=== PATIENT | male | born 1980 | race Caucasian/White ===

== ENCOUNTER 2018-07-06 14:28 | Emergency (ER) | payer SELFPAY | END 2018-07-06 15:20 | disposition home or self-care (01) | LOC: ERS 14:28 | DX: K04.7 Periapical abscess without sinus (principal); K02.9 Dental caries, unspecified | CPT/HCPCS: 99282 ==

== ENCOUNTER 2019-02-18 15:39 | Emergency (ER) | payer SELFPAY ==
[2019-02-18] MEDS ORDERED: Adacel (T-DAP) 0.5 ML SYRINGE ONE (16:46)
[2019-02-18] MEDS ORDERED: Lidocaine 1% w/Epinephrine 1:100K 20 ML VIAL ONE (16:49)
--- NOTE | 2019-02-18 17:02 | CT ---
CT BRAIN WITHOUT CONTRAST: INDICATIONS: History of hitting chin on trailer with loss of consciousness for 10 minutes. The patient has a lace ration along the chin. COMPARISON: 11/20/2014 FINDINGS: No acute infarct, hemorrhage, or hydrocephalus is present. The paranasal sinuses and mastoid air kami ls are clear. The skull is intact. IMPRESSION: No acute intracranial abnormality. POS: CET
[2019-02-18] MEDS ORDERED: Bacitracin 1 PK ONE (17:37)
== END 2019-02-18 17:38 | disposition home or self-care (01) ==
LOC: ERS 15:39
DX: S06.9X1A Unspecified intracranial injury with loss of consciousness of 30 minutes or less, initial encounter (principal); S01.81XA Laceration without foreign body of other part of head, initial encounter; F17.210 Nicotine dependence, cigarettes, uncomplicated; W01.198A Fall on same level from slipping, tripping and stumbling with subsequent striking against other object, initial encounter
CPT/HCPCS: 12051; 70450; 90471; 90715; J2001

== ENCOUNTER 2019-04-18 18:40 | Emergency (ER) | payer SELFPAY ==
[2019-04-18] MEDS ORDERED: Naproxen 500 MG TAB ONE (19:14)
== END 2019-04-18 19:18 | disposition home or self-care (01) ==
LOC: ERS 18:40
DX: K02.9 Dental caries, unspecified (principal); F41.9 Anxiety disorder, unspecified; F32.9 Major depressive disorder, single episode, unspecified; F17.210 Nicotine dependence, cigarettes, uncomplicated
CPT/HCPCS: 99282

== ENCOUNTER 2019-05-03 05:35 | Emergency (ER) | payer SELFPAY ==
[2019-05-03] MEDS ORDERED: Acetaminophen 500 MG TAB ONE (07:14)
== END 2019-05-03 07:17 | disposition home or self-care (01) ==
LOC: ERS 05:35
DX: K08.89 Other specified disorders of teeth and supporting structures (principal); R51 Headache; F41.9 Anxiety disorder, unspecified; F32.9 Major depressive disorder, single episode, unspecified; F17.210 Nicotine dependence, cigarettes, uncomplicated
CPT/HCPCS: 99282

== ENCOUNTER 2020-03-10 17:37 | Emergency (ER) | payer SELFPAY ==
[2020-03-10 19:05] LABS: #Basophils 0.1 thou/uL (0.0-0.2); #Eosinphils 0.2 thou/uL (0.0-0.7); #Lymphocytes 1.5 thou/uL (1.20-3.40); #Monocytes 0.5 thou/uL (0.11-0.59); #Neutrophils 5.5 thou/uL (1.40-6.50); %Basophils 0.7 % (0.0-1.0); %Eosinophils 2.4 % (0.0-10.0); %Lymphocytes 19.8 % (21.0-51.0); %Monocytes 6.7 % (0.0-10.0); %Neutrophils 70.4 % (42.0-75.0); Hemoglobin 15.2 g/dL (14.0-18.0); Mean Corpuscular HGB CONC 34.2 g/dL (32.0-36.0); Mean Corpuscular Hemoglobin 29.8 pg (27.0-31.0); Mean Corpuscular Volume 87.1 fL (78.0-98.0); Mean Platelet Volume 7.3 fL (7.4-10.4); Platelet Count 260 thou/uL (130-400); RBC Distribution Width 11.7 % (11.5-14.5); White Blood Cell (WBC) Count 7.8 thou/uL (4.8-10.8)
[2020-03-10] MEDS ORDERED: Ketorolac Tromethamine 30 MG/ML VIAL ONE (19:31)
[2020-03-10] MEDS ORDERED: Lidocaine 1% (PF) 30 ML VIAL ONE (19:49)
--- NOTE | 2020-03-10 20:11 | RAD ---
EXAM: LEFT HAND THREE VIEWS: 03/10/20 HISTORY: Left ring finger pain and swelling for several days. There is fairly marked focal soft tissue swelling of the fourth finger at approximately the proximal interphalangeal joint region. No acute fracture or dislocation or other osseous process. There is a f aint double density noted overlying the soft tissue region on the dorsal radial side, conceivably thi s could represent a very minimally opaque foreign body or may just represent some focal soft tissue c hange. No evidence for metal foreign body. IMPRESSION: Marked soft tissue swelling. No metal foreign body. No fracture or dislocation. Focal double density overlying the soft tissues on the dorsal radial side of the finger of uncertain etiology. POS: RRE
== END 2020-03-10 20:52 | disposition left against medical advice (07) ==
LOC: ERS 17:37
DX: S60.465A Insect bite (nonvenomous) of left ring finger, initial encounter (principal); L08.9 Local infection of the skin and subcutaneous tissue, unspecified; F17.210 Nicotine dependence, cigarettes, uncomplicated; W57.XXXA Bitten or stung by nonvenomous insect and other nonvenomous arthropods, initial encounter
CPT/HCPCS: 36415; 85025; 96372; J1885; J2001

== ENCOUNTER 2020-03-11 15:25 | Inpatient (IN) | payer OTHER, SELFPAY ==
--- NOTE | 2020-03-11 16:01 | RAD ---
LEFT HAND: 03/11/20 Three views. HISTORY: Swelling. FINDINGS/IMPRESSION: Comparison made to yesterday's left hand films. Soft tissue swelling of the ring finger at the PIP arabella int is again noted and appears unchanged in appearance. No definite soft tissue foreign body is seen. No osseous abnormality. No other finding or interval change. POS: AH
[2020-03-11] MEDS ORDERED: Lidocaine 1% (PF) 30 ML VIAL ONE (17:16)
[2020-03-11 17:56] LABS: #Eosinphils 0.2 thou/uL (0.0-0.7); #Lymphocytes 1.7 thou/uL (1.20-3.40); #Monocytes 0.5 thou/uL (0.11-0.59); #Neutrophils 5.1 thou/uL (1.40-6.50); %Basophils 0.6 % (0.0-1.0); %Eosinophils 2.7 % (0.0-10.0); %Lymphocytes 22.3 % (21.0-51.0); %Monocytes 7.1 % (0.0-10.0); %Neutrophils 67.3 % (42.0-75.0); Hemoglobin 15.5 g/dL (14.0-18.0); Mean Corpuscular HGB CONC 34.9 g/dL (32.0-36.0); Mean Corpuscular Hemoglobin 30.6 pg (27.0-31.0); Mean Corpuscular Volume 87.6 fL (78.0-98.0); Mean Platelet Volume 7.4 fL (7.4-10.4); Platelet Count 272 thou/uL (130-400); RBC Distribution Width 11.7 % (11.5-14.5); Red Blood Cell (RBC) Count 5.08 mill/uL (4.70-6.10); White Blood Cell (WBC) Count 7.7 thou/uL (4.8-10.8)
--- NOTE | 2020-03-11 18:01 | PDOC.FPRHP ---
- History of Present Illness Chief Complaint: Left fourth finger abscess History of Present Illness: 39-year-old male who presents for a left fourth finger abscess. Patient was seen in the ED yesterday d/t mild to moderate the swollen finger and at that time had an abscess who we offered to drain in the emergency department. Patient left AMA but did take a dose of his Doxy that he was given last night and returns here for worsening pain. Patient states he was working in the yard 4 -5 days ago and he "nicked" his finger. He is unsure if it was an insect bite or sting. States he started having swelling 1-2 days later. Notes he has taken 1 -2 advil per day for pain and used cold water for relief. Heat makes it worse. He denies fevers chills nausea vomiting. ED Course: unasyn/vanc started in ED, I&D performed in ED with cultures - Allergies/Adverse Reactions Allergies Allergy/AdvReac Type Severity Reaction Status Date / Time No Known Drug Allergies Allergy Verified 03/11/20 23:29 - History PMHx: none PSHx: none FHx: DM Social: smokes 1/2 pack of cigarettes x25 years, no alcohol, no drugs - Review of Systems General: denies: fever/chills, weight/appetite/sleep changes Eyes: denies: vision changes ENT: denies: nasal congestion Respiratory: denies: cough, congestion Cardiovascular: denies: chest pain Gastrointestinal: denies: nausea, vomiting, diarrhea Genitourinary: denies: incontinence, dysuria Skin: reports: other Musculoskeletal: reports: pain (Left fourth finger at joint line), tenderness, swelling Neurological: denies: numbness, syncope - Vital signs BP: 112/70, Pulse: 85, Resp: 14, Temp: 98.0 (Oral), Pain: 6, O2 sat: 100 on ( Room Air), - Physical Exam Constitutional: NAD, awake, alert and oriented HEENT: normocephalic and atraumatic, PERRLA, EOMI Neck: FROM Heart: pulses present, no edema Lungs: no respiratory distress, good air movement Abdomen: no masses/distention Musculoskeletal: other (Upper extremity exam included findings of inspection abnormal, Large abscess left fourth digit on the medial aspect of the PIP appears to be overlying the superficial skin with significant cellulitis of the entire finger. ROM intact, decreased sensation due to lidocaine from I&D) Neurological: no focal deficit Psychiatric: other (flat affect) FMR H&P: Results - Labs Result Diagrams: 03/11/20 17:41 03/11/20 17:41 Lab results: WBC 7.7 thou/uL (4.8-10.8) 03/11/20 17:41 Hgb 15.5 g/dL (14.0-18.0) 03/11/20 17:41 Hct 44.5 % (42.0-52.0) 03/11/20 17:41 MCV 87.6 fL (78.0-98.0) 03/11/20 17:41 Plt Count 272 thou/uL (130-400) 03/11/20 17:41 Neutrophils % 67.3 % (42.0-75.0) 03/11/20 17:41 FMR H&P: A/P - Plan Abscess of L Fourth Finger WBC nml, vitals stable XR shows soft tissue swelling at PCP, no FB I&D performed 03/11 Patient started on unasyn/vanc Dr. Horton (ortho) consulted by, appreciate recs. Will see in am, possibly go to surgery if no improvement - q4hr vitals - pain control with tylenol, ibuprofen and morphine prn Dispo: admit surg os, LOS likely <24 hours Code: DNR/DNI PCP: none PPX: none I have discussed this case with Dr. Price. FMR H&P: Upper Level - Plan Date/Time: 03/11/20 422 I, Solange Irene MD, have evaluated this patient and agree with findings/plan as outlined by cad intern resident. Pertinent changes/additions are listed here. This is a 39yo M presenting to the ER today for abscess of L 4th digit. He came to the ER yesterday, declined I&D, left AMA. He was sent home with doxy which he took once. He came back today because he had worsening pain and swelling in that L 4th digit. He denies any fever, chills. He is able to move the digit. Denies any numbness or tingling in digit. He reports he was working in his yard 4-5 days ago and thinks he maybe was bit by something or knicked his finger on something. 1-2 days later the finger was swelling and red. In the ER I&D performed on L 4th digit. No PMH. See cad intern note for full details/history. PE: General: NAD, well developed Cardio: RRR, no murmurs, rubs or gallops Resp: CTAB Abd: soft, non distended MSK: L 4th finger - bulla present, surrounding erythema, limited ROM due to swelling; otherwise no abnormalities Psych: flat affect, axox3 Plan: Abscess L 4th digit with cellulitis s/p I&D in the ER. Xray showing soft tissue swelling of L 4th digit. - Ortho consulted, Dr. Evans Horton. Appreciate recs. Will likely take to OR in the AM. - Continue Vanc and Unasyn - Pain control with tylenol, ibuprofen, morphine for breakthrough. Dispo: admit to surg, obs Diet: Reg, NPO @ midnight Case discussed with Dr. Price Addendum - Attending - Attending Attestation Date/Time: 03/12/20 2551 I personally evaluated the patient and discussed the management with the team on 03/11. I agree with the History, Examination, Assessment and Plan documented above with any addition or exceptions noted below.
[2020-03-11 18:19] LABS: ALT (SGPT) 14 U/L (8-55); AST (SGOT) 14 U/L (5-34); Albumin 4.6 g/dL (3.5-5.0); Alkaline Phosphatase 66 U/L (40-110); Anion Gap 12 mmol/L (10-20); BUN (Urea Nitrogen) 17 mg/dL (8.9-20.6); Bilirubin, Total 0.5 mg/dL (0.2-1.2); Calc. Creatinine Clearance 0 mL/min (70-130); Calcium 9.7 mg/dL (7.8-10.44); Carbon Dioxide 25 mmol/L (22-29); Chloride 106 mmol/L (98-107); Estimated GFR-MDRD 82; Globulin 2.9 g/dL (2.4-3.5); Glucose 70 mg/dL (70-105); Potassium 4.1 mmol/L (3.5-5.1); Protein, Total 7.5 g/dL (6.0-8.3); Sodium 139 mmol/L (136-145)
[2020-03-11] MEDS ORDERED: Morphine 4 MG/ML VIAL ONE (18:33)
[2020-03-11] MEDS ORDERED: Vancomycin 1 GM/200 ML BAG ONE (18:34)
[2020-03-11] MEDS ORDERED: Ketorolac Tromethamine 30 MG/ML VIAL ONE (18:34)
[2020-03-11] MEDS ORDERED: Ampicillin/Sulbactam 3 GM in Sodium Chloride 0.9% 100 ML IVPB SCH (19:00)
[2020-03-11] MEDS ORDERED: Morphine 2 MG/ML VIAL SLOW IVP PRN (20:53)
[2020-03-11] MEDS ORDERED: Acetaminophen 325 MG TAB PO PRN (21:24)
[2020-03-11] MEDS: Lactated Ringer's 1,000 ML IV SCH (22:03)
[2020-03-11 23:48] VITALS: BMI 20.2
[2020-03-12] MEDS: Ampicillin/Sulbactam 3 GM in Sodium Chloride 0.9% 100 ML IVPB SCH ×4 (02:43→20:06)
[2020-03-12] MEDS: Vancomycin 1 GM in Premix Bag 1 BAG IVPB SCH ×3 (05:05→20:10)
--- NOTE | 2020-03-12 05:40 | PDOC.FM ---
- Subjective Subjective: Pt resting comfortably at bedside. Stated that he was not having pain. No fever/ chills. No other complaints at this time. - Objective Vital Signs & Weight: Vital Signs (12 hours) Temp Pulse Resp BP Pulse Ox 03/12/20 00:00 98.5 F 88 14 106/70 98 03/11/20 19:40 98.5 F 70 16 117/64 97 Weight Weight 65.771 kg Result Diagrams: 03/11/20 17:41 03/11/20 17:41 Phys Exam - Physical Examination Constitutional: NAD HEENT: PERRLA Respiratory: no wheezing, no rales, no rhonchi Cardiovascular: RRR, no significant murmur, no rub Gastrointestinal: soft, non-tender, no distention Musculoskeletal: pulses present, edema present (swelling of L 4th digit. erythema and swelling contained to digit. has motor and sensation function.) Dx/Plan - Plan Plan: 39 y/o with no PMHx presented to ED with 1-2 days of swelling of left fourth digit with worsening pain. ## Abscess L 4th digit with cellulitis s/p I&D in the ER. Xray showing soft tissue swelling of L 4th digit. - Ortho consulted, Dr. Evans Horton. Appreciate recs. - Continue Vanc and Unasyn - Pain control with tylenol, ibuprofen, morphine for breakthrough. - cultures of digit grew s. aureus. blood clx neg x 1 Code: Full VTE PPX: Diet: Reg, NPO @ midnight PCP: none Dispo: admit to surg, obs. will f/u with ortho recommendations. Addendum - Attending - Attending Attestation Date/Time: 03/12/20 6725 I personally evaluated the patient and discussed the management with Dr. Mcnulty. I agree with the History, Examination, Assessment and Plan documented above with any addition or exceptions noted below. Patient stable. Awaiting Ortho recommendations regarding his digit abscess. I suspect he will need debridement but await their decision;. Continue abx.
[2020-03-12] MEDS: Lactated Ringer's 1,000 ML IV SCH (07:08)
[2020-03-12] MEDS: Morphine 2 MG/ML VIAL SLOW IVP PRN (13:06)
--- NOTE | 2020-03-12 16:28 | CON ---
DATE OF CONSULTATION: This is Johny Colon PA-C dictating a report for Bin Horton MD. HISTORY OF PRESENT ILLNESS: We were asked by the residents to evaluate patient. Apparently, the patient came into the ER yesterday or the day before with an infection to his left 4th digit. I offered to I and D him, he declined. He came back the next day, ER did just a small tomi incision, opened it up, got some blood and quite a bit of purulent discharge. He is currently in room 132, resting in bed. The wound is open, appears to have some scabbing or blood over the top, there is no dressing on it. He is moving it well, he does not have pain when I am speaking with him and he is moving his finger, although it is stiff, he can flex and extend it, so there is no concern of flexor tenosynovitis currently. He also does not have any numbness and tingling. I asked the patient what happened to his hand. He states he was working in the yard and had a tomi of some kind, he is not sure if it was a poke from a stick or bug bite or spider bite, but he did notice over the following days, it had gotten quite big and painful. I teased the patient a little bit and said next time, may want to use gloves in the yard and he thought that was moderately funny. No other symptoms except for that left hand. PAST MEDICAL HISTORY: Healthy. Does not see a doctor regularly. PAST SURGICAL HISTORY: None. ALLERGIES: NO KNOWN DRUG ALLERGIES. CURRENT MEDICATIONS: Maybe an OTC med, but nothing on a daily basis. FAMILY HISTORY: Family history for this particular event is noncontributory. SOCIAL HISTORY: Continues to smoke half pack cigarettes a day. Denies any alcohol and has not used any drug products for many years. REVIEW OF SYSTEMS: Left 4th digit injury infection. Otherwise, rest of review of systems negative. PHYSICAL EXAMINATION: VITAL SIGNS: Respirations 16. GENERAL: Well-nourished, well-developed male, alert, pleasant, no acute distress. Speech clear. Affect pleasant. Answers questions appropriately. He is alert and oriented x3. HEENT: Face symmetric. Tongue midline. He does have some missing teeth. Scalp, skull atraumatic. NECK: Supple. Trachea midline. EXTREMITIES: Upper extremities, equal size, shape, and symmetry. Normal bulk and tone. Movement and sensations equal with the exception of his left 4th digit, which looking at it, he is able to move it, flex and extend it, he is not able to straighten it completely, but he can extend it. The wound is again opened at bedside, there was no dressing on this and you could obviously see some scabbing and purulent discharge. I did get some clean gauze and removed some of the crusted-on sediment on his finger and I was able to express a fair amount of purulent fluid. Prior to me doing this, he had no pain. After I did this procedure, he was a little bit miserable and needed some pain medications. His finger blanched well. Sensations were good. Rest of the torso, pelvis, lower physical exam normal. LABORATORY DATA: X-ray of hand, I could appreciate no symptoms of any osteomyelitis. Labs showed a normal white blood cell count 7.7. Chemistries were also normal. Finger discharge from yesterday did show Staph aureus. Rest of culture and sensitivity pending. ASSESSMENT: Infection to the right fourth digit. PLAN: I spoke with the nurse, she got him some pain medications, which will be grateful after I mashed on his finger quite a bit. I also put in a consult for Wound Care to maybe do some warm soaks at the bedside and then a clean dressing to be applied afterwards. We will take a look at this in the morning. We will put him n.p.o. after midnight. I will reserve a room in the operating room if we do need to open this. I have explained this to the patient. He has a good understanding. We will finally let him eat today and then reiterated to him that after midnight, nothing by mouth; if he needs medications, he can take some sips and the nurse will pass this on to the nighttime shift. We have also gone over the risks and benefits of surgery. He has already had it opened, I informed him that I would be just opening a little bit more if we needed to. Job ID: [id number]
[2020-03-12 20:39] LABS: Vancomycin, Trough 10.4 ug/mL
[2020-03-13] MEDS: Ampicillin/Sulbactam 3 GM in Sodium Chloride 0.9% 100 ML IVPB SCH ×2 (01:35→14:14)
[2020-03-13] MEDS: Vancomycin HCl 1.25 GM in Sodium Chloride 0.9% 250 ML 250 ML IVPB SCH ×3 (05:13→20:56)
--- NOTE | 2020-03-13 05:35 | PDOC.FM ---
- Subjective Subjective: Pt resting comfortably at bedside. Not in pain. Not been afebrile. No complaints at this time. - Objective Vital Signs & Weight: Vital Signs (12 hours) Temp Pulse Resp BP Pulse Ox 03/12/20 23:33 98.5 F 88 18 108/72 98 03/12/20 20:00 98.8 F 96 20 114/63 97 Weight Admit Weight 65.771 kg Weight 65.771 kg I&O: 03/11/20 03/12/20 03/13/20 06:59 06:59 06:59 Intake Total 120 3275 Balance 120 3275 Result Diagrams: 03/13/20 05:48 03/13/20 05:48 Phys Exam - Physical Examination Constitutional: NAD HEENT: PERRLA Respiratory: no wheezing, no rales Cardiovascular: RRR, no significant murmur, no rub Gastrointestinal: soft, non-tender, no distention Musculoskeletal: no edema, pulses present (L. fourth digit wrapped. no spreading of erythema/swelling. ) Psychiatric: normal affect Dx/Plan - Plan Plan: 39 y/o with no PMHx presented to ED with 1-2 days of swelling of left fourth digit with worsening pain. ## Abscess L 4th digit with cellulitis s/p I&D in the ER. Xray showing soft tissue swelling of L 4th digit - Continue Vanc and Unasyn - Pain control with tylenol, ibuprofen, morphine for breakthrough. - cultures of digit grew s. aureus. blood clx neg x 1 - Vanc trough: 10.4, dose increased to 1.25 g - will stop unasyn - ortho recs: wound care (warm soaks and clean dressing) and another eval this AM. pt put at NPO @ midnight Code: Full VTE PPX: Diet: Reg, NPO @ midnight PCP: none Dispo: admit to surg, obs. will f/u with ortho recs about OR today or tomorrow. Addendum - Attending - Attending Attestation Date/Time: 03/13/20 1220 I personally evaluated the patient and discussed the management with Dr. Mcnulty. I agree with the History, Examination, Assessment and Plan documented above with any addition or exceptions noted below. Patient admitted for cellulitis and possible abscess now growing MRSA in the L hand digit. Ortho has been consulted and awaiting decision regarding the need for surgical intervention.
[2020-03-13 06:05] LABS: #Eosinphils 0.2 thou/uL (0.0-0.7); #Lymphocytes 1.4 thou/uL (1.20-3.40); #Monocytes 0.6 thou/uL (0.11-0.59); #Neutrophils 3.3 thou/uL (1.40-6.50); %Basophils 0.3 % (0.0-1.0); %Eosinophils 3.9 % (0.0-10.0); %Lymphocytes 25.3 % (21.0-51.0); %Monocytes 10.4 % (0.0-10.0); %Neutrophils 60.1 % (42.0-75.0); Hemoglobin 14.7 g/dL (14.0-18.0); Mean Corpuscular Hemoglobin 28.3 pg (27.0-31.0); Mean Corpuscular Volume 88.5 fL (78.0-98.0); Mean Platelet Volume 7.3 fL (7.4-10.4); Platelet Count 228 thou/uL (130-400); RBC Distribution Width 11.6 % (11.5-14.5); Red Blood Cell (RBC) Count 5.18 mill/uL (4.70-6.10); White Blood Cell (WBC) Count 5.4 thou/uL (4.8-10.8)
[2020-03-13 06:27] LABS: Anion Gap 10 mmol/L (10-20); BUN (Urea Nitrogen) 8 mg/dL (8.9-20.6); Calc. Creatinine Clearance 106 mL/min (70-130); Calcium 8.4 mg/dL (7.8-10.44); Carbon Dioxide 27 mmol/L (22-29); Chloride 103 mmol/L (98-107); Estimated GFR-MDRD Greater than 90; Glucose 93 mg/dL (70-105); Potassium 3.9 mmol/L (3.5-5.1); Sodium 136 mmol/L (136-145)
[2020-03-13] MEDS ORDERED: Fentanyl 100 MCG/2 ML VIAL ONE (09:38)
[2020-03-13] MEDS ORDERED: PROPOFOL 200 MG/20 ML VIAL ONE (10:42)
[2020-03-13] MEDS ORDERED: Lidocaine 1% PF 5 ML VIAL ONE (10:42)
[2020-03-13] MEDS ORDERED: Dexamethasone 20 MG/5 ML VIAL ONE (10:42)
[2020-03-13] MEDS ORDERED: Ondansetron PF 4 MG/2 ML Vial ONE (10:42)
[2020-03-13 11:49] LABS: SARS-CoV-2 MS2 Positive; SARS-CoV-2 N Gene Negative; SARS-CoV-2 S Gene Negative; SARS-CoV-2 by NAA Not Detected (NotDetected); SARS-CoV-2 orf1ab Negative
[2020-03-13] MEDS ORDERED: EPOETIN ALFA-EPBX (NON-ESRD) 10,000 UNIT/ML VIAL ONE (19:26)
[2020-03-14 03:05] LABS: Vancomycin, Trough 23.7 ug/mL
[2020-03-14] MEDS: Vancomycin HCl 1.25 GM in Sodium Chloride 0.9% 250 ML 250 ML IVPB SCH (04:53)
--- NOTE | 2020-03-14 05:24 | PDOC.FM ---
- Subjective Subjective: Pt resting comfortably at bedside. No new complaints. No acute events overnight. Remained afebrile. - Objective Vital Signs & Weight: Vital Signs (12 hours) Temp Pulse Resp BP Pulse Ox 03/14/20 03:24 97.5 F L 69 16 108/67 99 03/14/20 00:00 97.6 F 76 16 115/65 100 03/13/20 19:33 97.8 F 76 16 108/59 L 97 Weight Admit Weight 65.771 kg Weight 65.771 kg I&O: 03/12/20 03/13/20 03/14/20 06:59 06:59 06:59 Intake Total 120 3975 750 Balance 120 3975 750 Result Diagrams: 03/13/20 05:48 03/13/20 05:48 Phys Exam - Physical Examination Constitutional: NAD HEENT: PERRLA Respiratory: no wheezing, no rales, no rhonchi, clear to auscultation bilateral Cardiovascular: RRR, no significant murmur Gastrointestinal: soft, non-tender, no distention, positive bowel sounds Musculoskeletal: pulses present Psychiatric: normal affect, A&O x 3 Dx/Plan - Plan Plan: 39 y/o with no PMHx presented to ED with 1-2 days of swelling of left fourth digit with worsening pain. ## Abscess L 4th digit with cellulitis s/p I&D in the ER. Xray showing soft tissue swelling of L 4th digit - Continue Vanc and Unasyn - Pain control with tylenol, ibuprofen, morphine for breakthrough. - cultures of digit grew s. aureus. blood clx neg x 1 - ortho recs: wound care (warm soaks and clean dressing) - OR yesterday - finger clx grew gram + cocci, blood clx x2 grew s. aureus--sensitivities pending - vacn trough 23.5 Code: Full VTE PPX: Diet: Reg PCP: none Dispo: admitted inpatient. f/u with ortho recs. Addendum - Attending - Attending Attestation Date/Time: 03/14/20 5271 I personally evaluated the patient and discussed the management with Dr. Mcnulty. I agree with the History, Examination, Assessment and Plan documented above with any addition or exceptions noted below. MSSA L 4th finger abscess- s/p surgical I&D- awaiting op report but no documentation of septic arthritis. Staph bacteremia x2- will consult Dr. Sarah for abx choice, IV vs po and timing.
[2020-03-14] MEDS: Vancomycin 1 GM in Premix Bag 1 BAG IVPB SCH ×2 (05:54→12:58)
[2020-03-14] MEDS: Morphine 2 MG/ML VIAL SLOW IVP PRN (08:51)
--- NOTE | 2020-03-14 15:20 | CON ---
DATE OF CONSULTATION: 03/14/2020 REASON FOR CONSULTATION: Bacteremia and finger infection. HISTORY OF PRESENT ILLNESS: A 39-year-old, who has a history of prior substance use and developed inflammatory process at the 4th digit, left side with abscess formation. The patient had I and D by Dr. Zeng. I have not been able to review the operative note yet and I was asked to see him because of bacteremia. The patient is feeling better now. He has pain in the right antecubital fossa, right at the site of right-sided antecubital IV access site. No headaches. No visual symptoms, sore throat, odynophagia, dysphagia. No cough or sputum production, no chest pain, no abdominal pain or diarrhea. No genitourinary symptoms. No other joint symptoms. No neurological symptoms. PAST MEDICAL HISTORY: Negative except for substance use including cocaine and meth, but no IV drug use. Current cigarette smoker, a pack per week. ALLERGIES: Bactrim, Cephalexin. Meds: Vancomycin, Ibuprofen, Morphine prn FAMILY HISTORY: Noncontributory. PHYSICAL EXAMINATION: VITAL SIGNS: He has been afebrile since admission. BP 115/72, pulse 70, respirations are 16, and O2 saturation 99%. No lymphadenopathy. SKIN: Shows tenderness at the site of the right antecubital vein access. Ocular movements are conjugate. Oral cavity normal. NECK: Supple. No jugular vein distention. LUNGS: Symmetric. Clear breath sounds. HEART: S1 and S2. Regular rate. No S3 or S4. ABDOMEN: Soft, not distended, or tender. No ascites. No bladder distention. No joint inflammatory activity. NEUROLOGIC: Nonfocal. LABORATORY STUDIES: White cell count 7.7, hemoglobin 15, platelets are 272 and Followup WBC 5.4, hemoglobin 14.7, platelets 228 and creatinine 0.88. AST 14, ALT 14, COVID was not detected. Two sets of blood cultures with methicillin- sensitive Staphylococcus aureus from March 11, the day of admission and the culture from the finger with the same organism likely. There is a hand x-ray from 03/11 with soft tissue swelling, but no osseous abnormality. ASSESSMENT: 1. History of polysubstance use in the past, but not intravenously. 2. Injury to the 4th digit left hand with subsequent development of inflammatory process, status post surgical debridement. It looks like it was an abscess, now , the patient has bacteremia due to methicillin-sensitive Staph aureus. 3. The patient with inflammatory process, right antecubital vein with possible thrombosis. DISCUSSION: Differential diagnosis includes abscess with bacteremia versus a more complex problem, for example endocarditis, particularly in view of the prior use of drugs in the past. The possibility of septic thrombophlebitis of the right antecubital foci is considered as well, although the IV site was established on the day of admission and the same timing of the draw for the blood culture so that is less likely. He could have developed septic thrombophlebitis subsequently after the admission though. Nonetheless, this is a case of community-acquired Staphylococcus aureus bacteremia and those cases have a higher likelihood of having a more complex process such as endocarditis, so I would start workup with a 2D echocardiogram, may need a ARLEEN depending on findings. Probably would treat for longer period of time at least four weeks with IV Rocephin or cefazolin. He will need a PICC line insertion and probably treatment arrangements through the Oncology area since he does not have insurance. We will check hepatitis C and HIV as part of the workup if not done yet. Job ID: [id number] [email or web address]
[2020-03-14] MEDS: cefTRIAXone\\ROCEPHIN 2 GM in Sodium Chloride 0.9% 100 ML IVPB SCH (15:41)
[2020-03-14 15:47] LABS: HIV (1/2) Antibody/Antigen Non-Reactive (NonReactive); HIV 1/2 INDEX 0.34 S/CO (<1.00); Hep C IgG Ab Non-Reactive (NonReactive); Hep C Index 0.08 S/CO (0-0.79)
--- NOTE | 2020-03-15 05:33 | PDOC.FM ---
- Subjective Subjective: Pt resting comfortably in bed. Remained afebrile. Vitals remained stable. Pt not c/o any pain. - Objective Vital Signs & Weight: Vital Signs (12 hours) Temp Pulse Resp BP Pulse Ox 03/14/20 19:58 98.4 F 75 16 105/55 L 98 Weight Admit Weight 65.771 kg Weight 65.771 kg I&O: 03/13/20 03/14/20 03/15/20 06:59 06:59 06:59 Intake Total 3975 750 1480 Balance 3975 750 1480 Result Diagrams: 03/13/20 05:48 03/13/20 05:48 Phys Exam - Physical Examination Constitutional: NAD HEENT: PERRLA Respiratory: no wheezing, no rales, no rhonchi Cardiovascular: RRR, no significant murmur, no rub Musculoskeletal: no edema (finger wrapped, no spreading of erythema), pulses present Psychiatric: normal affect, A&O x 3 Dx/Plan - Plan Plan: 39 y/o with no PMHx presented to ED with 1-2 days of swelling of left fourth digit with worsening pain. ## Abscess L 4th digit with cellulitis s/p I&D in the ER. Xray showing soft tissue swelling of L 4th digit s/p I&D in OR with Dr. Whaley - sania trough 23.5; continue vanc - Pain control with tylenol, ibuprofen, morphine for breakthrough. - cultures of digit grew s. aureus. blood clx neg x 1 - finger clx: staph aureus - blood clx x2 grew s. aureus/g + cocci - ID consulted: appreciate recs: echo for possibility of septic thrombophlebitis , pt will need PICC line and at least 4wks of IV abx - echo: trace tricuspid regurg, neg for all other findings Code: Full VTE PPX: Diet: Reg PCP: none Dispo: admitted inpatient. pt will need PICC line for abx. Addendum - Attending - Attending Attestation Date/Time: 03/15/20 6802 I personally evaluated the patient and discussed the management with Dr. Mcnulty. I agree with the History, Examination, Assessment and Plan documented above with any addition or exceptions noted below. MSSA finger abscess and bacteremia- IV Rocephin 2 gm daily for total of 4 weeks. Will need PICC line and CM consult for IV abx
[2020-03-15] MEDS ORDERED: Chlorhexidine Gluconate 15 ML UDCUP SSP SCH (12:30)
[2020-03-15] MEDS: Morphine 2 MG/ML VIAL SLOW IVP PRN (13:15)
[2020-03-15] MEDS: Ibuprofen 600 MG TAB PO PRN ×2 (13:16→21:16)
--- NOTE | 2020-03-15 14:04 | PRG ---
DATE OF SERVICE: 03/15/2020 SUBJECTIVE: Feeling better. No headaches, chest pain, or back pain. Minimal tenderness in the right upper extremity from the IV puncture sites. No abdominal pain. Voiding without difficulty. OBJECTIVE: VITAL SIGNS: The patient is afebrile. Other vital signs are normal. O2 sats 98. GENERAL: No distress, oriented. LUNGS: Clear. HEART: S1 and S2. Regular rate without murmurs. EXTREMITIES: The right upper extremity area does not have any induration any longer. ABDOMEN: Soft. NEURO: Nonfocal. LABORATORY DATA: We have 2 more sets of blood cultures collected yesterday, pending. Echocardiogram demonstrated EF 55% to 60%. No obvious valvular abnormalities. ASSESSMENT AND DISCUSSION: 1. History of polysubstance use in the past. 2. Injury to 4th digit with abscess. The operative report is not yet available for review. 3. Bacteremia due to Staphylococcus aureus, methicillin sensitive. Again, this is a community-acquired bacteremia, and there is a high risk for complication, so I have recommended PICC line placement and 4 weeks of IV treatment. He should be able to be discharged tomorrow. Job ID: [id number] [facility]
[2020-03-15] MEDS: cefTRIAXone\\ROCEPHIN 2 GM in Sodium Chloride 0.9% 100 ML IVPB SCH (15:48)
--- NOTE | 2020-03-15 16:21 | OP ---
DATE OF PROCEDURE: 03/13/2020 PREOPERATIVE DIAGNOSIS: Left ring finger abscess, subcu. POSTOPERATIVE DIAGNOSIS: Left ring finger abscess, subcu. PROCEDURE PERFORMED: Incision and drainage of left ring finger abscess. ANESTHESIA: LMA. TOURNIQUET TIME: Zero. ESTIMATED BLOOD LOSS: Less than 5 mL. COMPLICATIONS: None. DRAINS: None. SPECIMEN: Swab sent for Gram stain, culture and sensitivity. INDICATIONS FOR PROCEDURE: The patient is a 39-year-old gentleman, status post either puncture wound or bug bite to his dorsal aspect of the left ring finger. The patient went on to develop an area of swelling and redness. This was partially drained in the emergency room; however, the patient has continued to have pain and still has fluctuance with draining pus from the small puncture wound. The overlying skin is now becoming necrotic. There is no ascending lymphangitis or cellulitic response beyond this ring finger at the level of the PIP joint. Given the lack of progression, the patient now taken to the operating room for unroofing of this abscess and irrigation and debridement. Informed consent obtained. All questions answered. DESCRIPTION OF PROCEDURE: The patient was brought to the operating room and a time-out performed followed by induction of general anesthesia. Next, a sterile prep and drape was performed of his left upper extremity. Next, the ring finger was inspected. There was found to be a dorsal radial abscess. This did not appear to involve the joint itself based on preoperative evaluation. The abscess cavity was then incised and white purulent material was encountered. This was swabbed and sent for Gram stain, culture, and sensitivity. The overlying skin was very thinned with evidence of early skin necrosis. As such, the questionable skin was sharply excised using a scalpel going through the skin and subcutaneous tissue. Once this marginal skin was removed, we were left with approximately a 1.5 cm round area of skin loss, but the underlying joint capsule appeared to be completely intact with no evidence of distention of the PIP joint or evidence of deeper infection. As such, this superficial abscess was then thoroughly irrigated with a liter of normal saline with bulb syringe. At the completion of the irrigation, it was packed with a damp saline gauze and then dry overwrapping. The patient was then transferred to recovery room in stable condition. There were no complications. He tolerated the procedure well. Job ID: [id number]
[2020-03-15] MEDS: Chlorhexidine Gluconate 15 ML UDCUP SSP SCH (21:16)
--- NOTE | 2020-03-16 05:45 | PDOC.FM ---
- Subjective Subjective: Patient reports a resolution of left 4th digit pain. ROM of left 4th digit has improved. He says erythema and swelling to the digit has improved. He denies chills, sweating, headache, chest pain, SOB, abdominal pain or edema. - Objective MAR Reviewed: Yes Vital Signs & Weight: Vital Signs (12 hours) Temp Pulse Resp BP Pulse Ox 03/15/20 20:00 98.6 F 80 18 115/66 98 Weight Admit Weight 65.771 kg Weight 65.771 kg I&O: 03/14/20 03/15/20 03/16/20 06:59 06:59 06:59 Intake Total 750 1480 Balance 750 1480 Result Diagrams: 03/13/20 05:48 03/13/20 05:48 Phys Exam - Physical Examination Constitutional: NAD HEENT: moist MMs, sclera anicteric Neck: supple, full ROM Respiratory: no wheezing, clear to auscultation bilateral Cardiovascular: RRR, no significant murmur Gastrointestinal: soft, non-tender, positive bowel sounds Musculoskeletal: no edema, pulses present Left 4th digit wrapped in gauze. No edema or erythema noted. Neurological: non-focal, moves all 4 limbs Lymphatic: no nodes Psychiatric: normal affect, A&O x 3 Skin: no rash, normal turgor Dx/Plan - Plan Plan: 1. Abscess L 4th digit with cellulitis s/p I&D Patient underwent I&D in the ER. Xray showed soft tissue swelling of L 4th digit. Underwent I&D in OR with Dr. Whaley. Culture positive for s. aureus. Blood culture x 2 positive for s. aureus/g + cocci. Echo showed trace tricuspid regurg. - Vanc discontinued 03/15 - Rocephin 2g daily for 4 weeks, per ID recs - F/u repeat blood cultures - Pain control with tylenol and ibuprofen - Place PICC line today - F/u CM on outpatient antibiotic coordination 2. Depression -Establish care outpatient for follow up Code: Full Diet: Reg PCP: none Dispo: Discharge upon coordination of outpatient antibiotics
[2020-03-16] MEDS: Ibuprofen 600 MG TAB PO PRN ×2 (06:11→13:00)
[2020-03-16 08:03] VITALS: BP 90/55; TEMP 98.1
[2020-03-16] MEDS: Chlorhexidine Gluconate 15 ML UDCUP SSP SCH (08:15)
--- NOTE | 2020-03-16 12:12 | PRG ---
DATE OF SERVICE: 03/16/2020 Mr. Wiggins is a pleasant 39-year-old man, who presented with an abscess finger. He went to surgery and had an I and D'd. He also grew out a positive MSSA blood culture and a subsequent ultrasound revealed tricuspid regurgitation, but no vegetation. Dr. Sarah was consulted and the patient will be maintained on antibiotics for 4 weeks. I would suggest that if he has a recurrence of his infection, that we consider doing a transesophageal echo. In the event, we will follow Dr. Sarah' recommendations at this point in anticipation of discharge with his PICC line in a day or 2. Job ID: [id number]
--- NOTE | 2020-03-16 14:25 | SPC ---
SPC CVP LINE PICC INITIAL >5: 03/16/2020 2:22 PM INDICATION: Need for long-term IV antibiotics PROCEDURE: Peripherally placed 48 cm single lumen PICC line. PICC Line Placement: The left arm was prepped and draped in sterile fashion. One percent lidocaine was used for local anesthetic. Under fluoroscopic and ultrasound guidance, the left basilic vein was patent and accessed with a micr opuncture needle. A guide wire was then advanced into the left basilic vein. A vascular sheath was then advanced over a guide wire, and a single lumen PICC line was trimmed. The PICC line was th en advanced into the central venous system. A final placement film demonstrates the tip of the catheter terminated in the caval-atrial junction. After confirmation of the catheter position, the catheter was sutured in place at the skin entry site . There was no immediate complication. Total fluoroscopic time 0.2 minutes. Total exposure 1666 mgray/sq cm IMPRESSION: Peripheral placement of a single lumen power PICC line into the left basilic vein using fluoroscopic and ultrasound guidance.
[2020-03-16] MEDS: cefTRIAXone\\ROCEPHIN 2 GM in Sodium Chloride 0.9% 100 ML IVPB SCH (15:15)
--- NOTE | 2020-03-17 14:17 | DIS ---
DATE OF ADMISSION: 03/11/2020 DATE OF DISCHARGE: 03/16/2020 RESIDENT: Sharla Medellin MD ADMITTING ATTENDING: Brendan Price MD DISCHARGE ATTENDING: Vaughn Mazariegos MD CONSULTS: Dr. Horton (Orthopedic Surgery). Dr. Whaley (Orthopedic Surgery ). Dr. Sarah (Infectious Disease). PROCEDURES: On 03/13, incision and drainage of left ring finger abscess. On , echo completed and showed trace tricuspid regurgitation. On 03/16, PICC line placement. PRIMARY DIAGNOSIS: Left ring finger abscess status post incision and drainage with bacteremia due to s.aureus, methicillin sensitive SECONDARY DIAGNOSIS: Hx. polysubstance abuse. Depression. DISCHARGE MEDICATIONS: 1. Ceftriaxone 2 g IV PB q.24 hour. 2. Chlorhexidine 15 mL SSP b.i.d. DISCONTINUED MEDICATIONS: None. HISTORY OF PRESENT ILLNESS: Patient is a 39-year-old male who presented to the ED with left ring finger abscess on 03/10. I&D was offered at that time but patient left AMA. He received one dose of doxycycline. On 03/11, he returned to the ED complaining of worsening pain. The left ring finger abscess was I&D'ed in the ED. X-ray showed soft tissue swelling of the left fourth digit. Orthopedics were consulted. Patient went to OR on 03/13 for incision and drainage of the left ring finger abscess. The patient was placed on vancomycin and Unasyn. Culture of abscess was positive for Staph aureus. Blood cultures x2 were also positive for Staph aureus. An echo was ordered and showed trace tricuspid regurgitation. Vancomycin was discontinued on 03/15. Due to a high risk of complications related to community acquired bacteremia, the patient was placed on Rocephin 2 g daily. He will complete 4 weeks of antibiotic treatment. Due to the inability to obtain home health related to lack of insurance, the patient will come to the hospital daily for his antibiotic dose. During the hospitalization, the patient expressed a desire to be seen outpatient for depression. He was encouraged to establish care with a primary care physician for follow up within 1 week. DISPOSITION: Guarded due to required antibiotics treatment. DISCHARGE INSTRUCTIONS: Location: Home. Diet: Regular. Activity: As tolerated. Followup: Return to hospital daily for Rocephin 2 g for the next four weeks. Establish care with PCP to follow up hospitalization as well as discuss depression. Job ID: [id number]
--- NOTE | 2020-03-18 06:38 | PQF ---
CLINICAL DOCUMENTATION CLARIFICATION FORM: Dear : Vaughn Lira Date / Time: 03/18/20 0636 Please exercise your independent, professional judgment in responding to the clarification form. Clinical indicators are provided on the bottom of this form for your review Please check appropriate box(es): [ ] Sepsis due to Finger Abscess [ x ] Localized infection without sepsis [ X ] Other diagnosis __septicemia [ ] Unable to determine In addition, please specify: Present on Admission (POA): [ X ] Yes [ ] No [ ] Unable to determine Physician Signature: Vaughn Mazariegos MD Date/Time:03-18-2020 For continuity of documentation, please document condition throughout progress notes and discharge summary. Thank You. To be completed by CDI/Coding staff for physician review: Present Clinical Indicators - Signs / Symptoms / Labs Results and Location in Medical Record [X] WBC 7.7, Plt count 272, Neutrophils 67.3 Laboratory Hematology 03/11 [X] BP 117/67, Pulse 88, Reso 16, Temp 98.5 Vital signs 03/11 [X] BP 103/58, pulse 96, Resp 20, Temp 97.5 Vital signs 03/12 [X] Blood Culture: MSSA positive Microbiology 03/11 [X] Fourth finger abscess H&P p1 03/11 Dr Alas [X] Necrosis Operative report DR Whaley 03/13 [X] Staph bacteremia HPN p303/14 Dr Doshi [X] He could developed septic thrombophebitis Consult Tobi Taylor 03/14 Present Risk Factors Results and Location in Medical Record [X] Fourth finger abscess H&P p1 03/11 Dr Alas [X] Smoker H&P p1 03/11 Dr Alas [X] Cellulitis HPN p2 03/14 Dr Doshi [X] septic thrombophebitis Consult Tobi Taylor 03/14 Present Treatments Results and Location in Medical Record [X] IV Vancomycin 1.25 mg OCT 25 [X] IVF NS 1L OCT 25 [X] IVF Lactated Ringers 1L OCT 25 [X] IV Ampicillin 3 gm OCT 25 [X] IV Ceftriaxone 2 gm OCT 25 [X] Blood Culture Microbiology 03/11 [X] ID consult Consult Tobi Taylor 03/14 [X] I&D with Debridement Operative report DR Whaley 03/13 CDS/Control Room Helper Signature: Stephanie Jay Phone #: [facility] [phone] Date/Time: 03/18/20 0636 This is a permanent part of the Medical Record [facility]
== END 2020-03-16 16:15 | disposition home or self-care (01) | DRG 854 ==
LOC: ERS 15:25 → OBSVTOIN 19:49 → ONC 19:49
PROVIDERS: ADMIT Orthopaedic Surgery Hand Surgery; ATTEND Orthopaedic Surgery Hand Surgery
PROC: 0J9K0ZZ Drainage of Left Hand Subcutaneous Tissue and Fascia, Open Approach (ICD-10-PCS; 2020-03-11)
PROC: 0JBK0ZZ Excision of Left Hand Subcutaneous Tissue and Fascia, Open Approach (ICD-10-PCS; principal; 2020-03-13)
PROC: 0J9K0ZZ Drainage of Left Hand Subcutaneous Tissue and Fascia, Open Approach (ICD-10-PCS; 2020-03-13)
PROC: 02HV33Z Insertion of Infusion Device into Superior Vena Cava, Percutaneous Approach (ICD-10-PCS; 2020-03-16)
PROC: B518ZZA Fluoroscopy of Superior Vena Cava, Guidance (ICD-10-PCS; 2020-03-16)
PROC: B548ZZA Ultrasonography of Superior Vena Cava, Guidance (ICD-10-PCS; 2020-03-16)
DX: A41.9 Sepsis, unspecified organism (principal); L02.512 Cutaneous abscess of left hand; I96 Gangrene, not elsewhere classified; F17.210 Nicotine dependence, cigarettes, uncomplicated; L03.012 Cellulitis of left finger; B95.61 Methicillin susceptible Staphylococcus aureus infection as the cause of diseases classified elsewhere; I07.1 Rheumatic tricuspid insufficiency; F32.9 Major depressive disorder, single episode, unspecified; Z11.59 Encounter for screening for other viral diseases; I80.8 Phlebitis and thrombophlebitis of other sites
CPT/HCPCS: 26010; 36415; 36569; 80048; 80053; 80202; 85025; 86803; 87040; 87070; 87077; 87149; 87186; 87205; 87389; 87635; 93306; 96365; 96366; 96367; 96375; C1751; G0378; J0295; J0696; J1100; J1885; J2001; J2270; J2405; J2704; J3010; J3370; J3490; J7050; Q5106; U0003

== ENCOUNTER 2020-06-24 21:54 | Emergency (ER) | payer SELFPAY ==
[2020-06-24] MEDS ORDERED: Fluorescein Opthalmic Strip ONE (22:19)
[2020-06-24] MEDS ORDERED: Proparacaine 0.5% Opth 15 ML BOT ONE (22:30)
== END 2020-06-24 23:10 | disposition home or self-care (01) ==
LOC: ERS 21:54
DX: S05.01XA Injury of conjunctiva and corneal abrasion without foreign body, right eye, initial encounter (principal); F17.210 Nicotine dependence, cigarettes, uncomplicated; W22.8XXA Striking against or struck by other objects, initial encounter
CPT/HCPCS: 99283

== ENCOUNTER 2023-04-13 08:10 | Emergency (ER) | payer OTHER, SELFPAY | END 2023-04-13 08:48 | disposition home or self-care (01) | LOC: ERS 08:10 | DX: M27.2 Inflammatory conditions of jaws (principal); F17.210 Nicotine dependence, cigarettes, uncomplicated | CPT/HCPCS: 99282 ==

== ENCOUNTER 2023-04-30 15:04 | Emergency (ER) | payer OTHER | END 2023-04-30 16:12 | disposition home or self-care (01) | LOC: ERS 15:04 | DX: S02.5XXA Fracture of tooth (traumatic), initial encounter for closed fracture (principal); F17.210 Nicotine dependence, cigarettes, uncomplicated; X58.XXXA Exposure to other specified factors, initial encounter | CPT/HCPCS: 99282 ==